=== PATIENT | female | born 1960 | race Hispanic/Latino ===

== ENCOUNTER → 2021-11-20 | Outpatient (CLI) | payer OTHER ==
[~2021-11-20] MED LIST: LIDOCAINE HCL 4% LTA SOL 4 ML VIAL ONE
== END | disposition home or self-care (01) ==
LOC: WHH 13:28
PROVIDERS: ATTEND Family Medicine
DX: S91.301A Unspecified open wound, right foot, initial encounter (principal); E11.51 Type 2 diabetes mellitus with diabetic peripheral angiopathy without gangrene; I10 Essential (primary) hypertension; E78.5 Hyperlipidemia, unspecified; Z79.84 Long term (current) use of oral hypoglycemic drugs; Z79.899 Other long term (current) drug therapy; Z90.11 Acquired absence of right breast and nipple; W22.8XXA Striking against or struck by other objects, initial encounter; Y93.02 Activity, running; Y92.89 Other specified places as the place of occurrence of the external cause; Y99.8 Other external cause status
CPT/HCPCS: 11042; A4450; G0463; 99205

== ENCOUNTER → 2021-11-27 | Outpatient (CLI) | payer OTHER | END | disposition home or self-care (01) | LOC: WHH 09:46 | PROVIDERS: ATTEND Family Medicine | DX: S91.301D Unspecified open wound, right foot, subsequent encounter (principal); E11.628 Type 2 diabetes mellitus with other skin complications; E11.51 Type 2 diabetes mellitus with diabetic peripheral angiopathy without gangrene; I10 Essential (primary) hypertension; E78.5 Hyperlipidemia, unspecified; Z79.84 Long term (current) use of oral hypoglycemic drugs; Z79.899 Other long term (current) drug therapy; Z90.11 Acquired absence of right breast and nipple; W22.8XXD Striking against or struck by other objects, subsequent encounter | CPT/HCPCS: 99214; G0463 ==